=== PATIENT | female | born 1960 | race Caucasian/White ===

== ENCOUNTER 2016-08-02 08:59 | Emergency (ER) | payer MEDICARE, OTHER ==
[~2016-08-02] VITALS: Ht 175.3 cm; Wt 122.5 kg
--- NOTE | 2016-08-02 09:15 | PHYS DOC ---
Past Medical History Past Medical History: Arthritis Additional Past Medical Histor: obesity Past Surgical History: No Surgical History Alcohol Use: None Drug Use: None Adult General Chief Complaint Chief Complaint: LOWER BACK PAIN OR INJURY HPI HPI Patient is a 56 year old female who presents by EMS for chronic low back pain and chronic left knee pain that are worse since running out of home Ultracet. She ran out of medication 2 days ago and her pain is gradually worsening. She has achy pain, worse with movement. Pain to bilateral low back. States her pain medications are managed by [facility] and she tried calling her primary care doctor who told her she cannot get a refill until the 17th of this month. She states she is on a weight loss plan and has other goals to meet prior to left knee replacement. She denies injury, dysuria, nausea or vomiting, abdominal pain, numbness, tingling, weakness. Review of Systems Review of Systems Constitutional: Denies fever or chills [] Eyes: Denies change in visual acuity, redness, or eye pain [] HENT: Denies nasal congestion or sore throat [] Respiratory: Denies cough or shortness of breath [] Cardiovascular: No additional information not addressed in HPI [] GI: Denies abdominal pain, nausea, vomiting, bloody stools or diarrhea [] : Denies dysuria or hematuria [] Musculoskeletal: Has back pain and joint pain [] Integument: Denies rash or skin lesions [] Neurologic: Denies headache, focal weakness or sensory changes [] Endocrine: Denies polyuria or polydipsia [] Current Medications Current Medications Current Medications Medications (Trade) Dose Ordered Sig/[facility] Start Time Stop Time Status Last Admin Dose Admin Tramadol HCl (Ultram) 50 mg 1X ONCE 08/02/16 09:30 08/02/16 09:31 Allergies Allergies Allergies Coded Allergies Type Severity Reaction Last Updated Verified Penicillins Allergy Intermediate 08/02/16 Yes naproxen Allergy Intermediate 08/02/16 Yes varenicline Allergy Intermediate 08/02/16 Yes Uncoded Allergies Type Severity Reaction Last Updated Verified CHANTEX Allergy Unknown 10/03/13 Physical Exam Physical Exam Constitutional: Well developed, well nourished, no acute distress, non-toxic appearance. [] HENT: Normocephalic, atraumatic, bilateral external ears normal, oropharynx moist, nose normal. [] Eyes: PERRLA, EOMI. [] Neck: Normal range of motion, supple. [] Cardiovascular:Heart rate regular rhythm [] Lungs & Thorax: Bilateral breath sounds clear to auscultation [] Abdomen: Bowel sounds normal, soft, no tenderness. [] Skin: Warm, dry, no erythema, no rash. [] Back: No midline spinal tenderness, no CVA tenderness. Has bilateral lumbar paraspinal muscle tenderness with no palpable abnormality [] Extremities: No tenderness, ROM intact, no edema, equal DP pulses, sensation intact to light touch to lower extremities, ambulatory with an antalgic but steady gait with a cane. [] Neurologic: Alert and oriented X 3, normal motor function, normal sensory function, no focal deficits noted. [] Psychologic: Affect normal, judgement normal, mood normal. [] Current Patient Data Vital Signs Vital Signs Date Time Temp Pulse Resp B/P Pulse Ox O2 Delivery O2 Flow Rate FiO2 08/02/16 09:10 98.1 79 20 97 Room Air 98.1 Course & Med Decision Making Course & Med Decision Making Discussed chronic pain management is not performed through the Emergency Department and she will not receive a prescription. Offered tramadol x1 here. Discussed she should have her pain managed by her PCP. Return precautions given. She understood. Dragon Disclaimer Jaziel Disclaimer This electronic medical record was generated, in whole or in part, using a voice recognition dictation system. Departure Departure Impression: Primary Impression: Chronic low back pain Additional Impression: Chronic pain of left knee Disposition: HOME, SELF-CARE Condition: STABLE Referrals: NO PCP (PCP) Patient Instructions: Back Pain, Adult, [id number] Additional Instructions: Follow-up with your primary care doctor. Return for any concerns. Problem Qualifiers Primary Impression: Chronic low back pain Back pain laterality: bilateral Sciatica presence: without sciatica Qualified Code: M54.5 - Low back pain Evelin MORLEY MD Aug 02, 2016 09:15
[2016-08-02 09:21] VITALS: BP 151/87
[2016-08-02] MEDS ORDERED: TRAMADOL 50 MG TABLET. PO ONE (09:30)
== END 2016-08-02 09:33 | disposition home or self-care (01) ==
LOC: ER 08:59
DX: G89.29 Other chronic pain (principal); M54.5 Low back pain; M25.562 Pain in left knee; M19.90 Unspecified osteoarthritis, unspecified site; Z88.0 Allergy status to penicillin; Z88.1 Allergy status to other antibiotic agents; Z88.6 Allergy status to analgesic agent; Z88.8 Allergy status to other drugs, medicaments and biological substances
CPT/HCPCS: 99283

== ENCOUNTER 2016-11-01 09:13 | Emergency (ER) | payer MEDICARE, OTHER ==
[~2016-11-01] VITALS: Ht 175.3 cm; Wt 127.0 kg
[2016-11-01 09:17] VITALS: BP 137/93
--- NOTE | 2016-11-01 10:01 | PHYS DOC ---
Past Medical History Past Medical History: Arthritis Additional Past Medical Histor: obesity Past Surgical History: No Surgical History Alcohol Use: None Drug Use: None Adult General Chief Complaint Chief Complaint: COUGH HPI HPI Patient is a 56 year old female presents to the emergency department with a history of cough since Monday with a sore throat, denies fever, chills. Patient states she has not take anything for the symptoms, she states that she does not have anything at home to take. Review of Systems Review of Systems Constitutional: Denies fever or chills [] Eyes: Denies change in visual acuity, redness, or eye pain [] HENT: Denies nasal congestion C/o sore throat [] Respiratory: cough denies shortness of breath [] Cardiovascular: No additional information not addressed in HPI [] GI: Denies abdominal pain, nausea, vomiting, bloody stools or diarrhea [] : Denies dysuria or hematuria [] Musculoskeletal: Denies back pain or joint pain [] Integument: Denies rash or skin lesions [] Neurologic: Denies headache, focal weakness or sensory changes [] Endocrine: Denies polyuria or polydipsia [] Allergies Allergies Allergies Coded Allergies Type Severity Reaction Last Updated Verified Penicillins Allergy Intermediate 08/02/16 Yes naproxen Allergy Intermediate 08/02/16 Yes varenicline Allergy Intermediate 08/02/16 Yes Uncoded Allergies Type Severity Reaction Last Updated Verified CHANTEX Allergy Unknown 10/03/13 Physical Exam Physical Exam Constitutional: Well developed, well nourished, no acute distress, non-toxic appearance. [] HENT: Normocephalic, atraumatic, bilateral external ears normal, oropharynx moist, no oral exudates, nose normal. Bilateral TM normal, throat with redness noted, no erythema noted. no exudate noted. Eyes: PERRLA, EOMI, conjunctiva normal, no discharge. [] Neck: Normal range of motion, no tenderness, supple, no stridor. [] Cardiovascular:Heart rate regular rhythm, no murmur [] Lungs & Thorax: Bilateral breath sounds clear to auscultation [] Skin: Warm, dry, no erythema, no rash. [] Back: No tenderness, Extremities: No tenderness, no cyanosis, no clubbing, ROM intact, no edema. [] Neurologic: Alert and oriented X 3, normal motor function, normal sensory function, no focal deficits noted. [] Psychologic: Affect normal, judgement normal, mood normal. [] Current Patient Data Vital Signs Vital Signs Date Time Temp Pulse Resp B/P (MAP) Pulse Ox O2 Delivery O2 Flow Rate FiO2 11/01/16 09:17 98.2 79 18 137/93 (108) 97 Room Air 98.2 EKG EKG [] Radiology/Procedures Radiology/Procedures [] Course & Med Decision Making Course & Med Decision Making Pertinent Labs and Imaging studies reviewed. (See chart for details) Patient was provided with discharge instructions for URI. Patient encouraged to use Mucinex DM over the counter with Tylenol or Ibuprofen for fever, chills or generalized body aches. Recommended plenty of fluids, cough drops and throat lozenges for pain and discomfort. Patient will be discharged home in stable condition. Signs and symptoms to return to the emergency department have been provided. [] Dragon Disclaimer Dragon Disclaimer This electronic medical record was generated, in whole or in part, using a voice recognition dictation system. Departure Departure Impression: Primary Impression: Upper respiratory infection Disposition: HOME, SELF-CARE Condition: STABLE Referrals: UNKNOWN PCP NAME (PCP) Patient Instructions: Smoking, You Can Quit, [id number], Upper Respiratory Infection, Adult, [id number] Additional Instructions: Activity as tolerated Mucinex DM for cough and congestion Tylenol or Ibuprofen for fever, chills or generalized body aches and discomfort Drink plenty of fluids such as water, propel, gatorade Throat lozenges and cough drops may also help the throat. Stop smoking Followup with your primary care provider in 3-5 days TAIWO JACINTO APRN Nov 01, 2016 10:00
== END 2016-11-01 10:40 | disposition home or self-care (01) ==
LOC: ER 09:13
DX: J06.9 Acute upper respiratory infection, unspecified (principal); M19.90 Unspecified osteoarthritis, unspecified site; E66.9 Obesity, unspecified; Z68.41 Body mass index [BMI] 40.0-44.9, adult; Z88.0 Allergy status to penicillin; Z88.6 Allergy status to analgesic agent; Z88.1 Allergy status to other antibiotic agents
CPT/HCPCS: 99281